=== PATIENT | male | born 1945 | race Caucasian/White ===

== ENCOUNTER → 2017-09-24 06:36 | Outpatient (CLI) | payer OTHER, SELFPAY ==
--- NOTE | 2017-09-24 | DI.MRI.S_ITS ---
PROCEDURE: MR LUMBAR SPINE WO CON INDICATIONS: LOW BACK PAIN TECHNIQUE: Noncontrast sagittal T1 spin echo and T2 fast echo, sagittal STIR, axial T1 and T2 fast spin echo through the lumbar spine. In cases with scoliosis, additional coronal T2 fast spin echo may be performed. COMPARISON: [facility], NM, BONE SCAN WHOLE BODY, 06/03/2009, 11:39. [facility], CT, ABDOMEN/PELVIS WITH CONTRAST, 05/16/2009, 14:08. [facility], CR, L-SPINE 2-3 VIEWS, 11/16/2010, 15:06. [facility], MR, L-SPINE WITHOUT CONTRAST, 12/07/2010, 10:40. FINDINGS: Image quality: Diagnostic, with note made of motion artifact. Alignment and Curvature: Mild retrolisthesis is seen at the T12-L1, and L1-L2, L2-L3, and L3-L4 levels. Minimal anterolisthesis is seen at L5-S1. Bone Marrow: Marrow is of normal overall signal. No acute vertebral body compression fractures. Spinal Cord: Conus medullaris terminates at the L1 level. Visualized cord demonstrates normal signal and size. Paraspinous Soft Tissues: No paravertebral masses. T12-L1: At least moderate loss of disc height is seen. Loss of disc signal is seen. Moderate to prominent disc bulge is seen, which is eccentric to the right. There is moderate bilateral neural foraminal narrowing seen, right worse than left. Moderate central canal narrowing is seen. These degenerative changes are progressed compared to 2011. L1-L2: Mild to moderate loss of disc height and disc signal are seen. Moderate generalized disc bulge is seen. Moderate facet joint hypertrophy is seen. Moderate bilateral neural foraminal narrowing is seen, left worse than right. Moderate to severe central canal narrowing is seen at this level. These degenerative changes are progressed compared to the prior MRI. L2-L3: Mild loss of disc height is seen. Loss of disc signal is seen. Moderate to prominent disc bulge is seen, which is eccentric to the right. Moderate to prominent facet hypertrophy is seen. Moderate to severe bilateral neural foraminal narrowing is seen, left worse than right. There is severe central canal narrowing seen, as on series 6 image 20. This is partially exacerbated by the presence of prominent epidural fat. These degenerative changes are mildly progressed compared to the prior MRI. L3-L4: Moderate to severe loss of disc height and disc signal are seen. Moderate disc bulge is seen at this level. Moderate facet joint hypertrophy is seen. Moderate bilateral neural foraminal narrowing is seen. Moderate central canal narrowing is seen. These degenerative changes are progressed compared to 2011. L4-L5: Moderate to severe loss of disc height and disc signal are seen. Moderate to prominent disc bulge is seen. Moderate to prominent facet hypertrophy is seen at this level. There is moderate to severe right-sided and moderate left-sided neural foraminal narrowing. Moderate central canal narrowing is seen. These degenerative changes are progressed compared to the prior MRI. L5-S1: The disc height is well-preserved. Loss of disc signal is seen at this level. Postoperative changes are seen at this level, with a disc spacer. Moderate generalized disc bulge is seen. Moderate to prominent facet hypertrophy is seen. There is moderate to severe right-sided and moderate left-sided neural foraminal narrowing seen. Moderate central canal narrowing is seen at this level, which is partially exacerbated by prominent epidural fat. These degenerative changes are worse than in 2011. IMPRESSION: Multiple levels of lumbar spine degenerative changes are seen, which have progressed compared to 2011. The degenerative changes overall are worst at the L2-L3 level. Dictated by: Reji Hernandez M.D. on 09/24/2017 at 10:07 Approved by: Reji Hernandez M.D. on 09/24/2017 at 10:40
== END ==
PROVIDERS: PCP Family Medicine; Visit Provider Physical Medicine & Rehabilitation
DX: M51.36 Other intervertebral disc degeneration, lumbar region (principal); M43.15 Spondylolisthesis, thoracolumbar region; M43.16 Spondylolisthesis, lumbar region; M43.17 Spondylolisthesis, lumbosacral region
CPT/HCPCS: 72148

== ENCOUNTER → 2018-04-04 12:48 | Outpatient (CLI) | payer OTHER, SELFPAY ==
--- NOTE | 2018-04-04 | DI.RAD.S_ITS ---
PROCEDURE: XR HIP W PEL IF DONE LT MIN 4V INDICATIONS: SPINAL STENOSIS,LUMBAR REGION,SACROLILIITIS TECHNIQUE: AP pelvis with lateral view(s) of the left and right hip(s). COMPARISON: None. FINDINGS: Bones: No fractures or dislocations. Pelvic ring appears intact. No suspicious bony lesions. Mild joint narrowing with periarticular osteophyte formation of the left and right hip joint. Degenerative disc and facet disease involves the inferior lumbar spine. Soft tissues: The visualized bowel gas pattern is normal. No suspicious soft tissue calcifications. IMPRESSION: Mild symmetric hip joint degeneration. Dictated by: Saul Dias [facility] Interpreted: Irvin Javed MD on 04/04/2018 at 14:03 Approved by: Irvin Javed M.D. on 04/04/2018 at 14:25
== END ==
PROVIDERS: PCP Family Medicine; Visit Provider Neurological Surgery
DX: M48.062 Spinal stenosis, lumbar region with neurogenic claudication (principal); M46.1 Sacroiliitis, not elsewhere classified; M16.0 Bilateral primary osteoarthritis of hip
CPT/HCPCS: 73522

== ENCOUNTER → 2018-06-23 09:18 | Outpatient (CLI) | payer OTHER, SELFPAY ==
[2018-06-23 10:04] LABS: Add Manual Diff / Slide Review NO; Basophils Absolute Auto 100 /uL (0-100); Basophils Percent Auto 2.5 % (0-2); Eosinophils Absolute Auto 300 /uL (0-450); Eosinophils Percent Auto 10.5 % (2-4); Hematocrit 43.5 % (41-53); Hemoglobin 14.9 g/dL (13.5-17.5); Lymphocytes Absolute Auto 800 /uL (1100-4500); Mean Corpuscular HGB Conc 34.1 % (30-36); Mean Corpuscular Volume 87.9 fL (80-100); Monocytes Absolute Auto 300 /uL (0-900); Monocytes Percent Auto 11.6 % (3-14); Neutrophils Absolute Auto 1400 /uL (1500-7000); Neutrophils Percent Auto 47.4 % (50-75); Platelet Count 175 X10^3/uL (150-400); Red Blood Cell Count 4.95 X10^6/uL (4.5-5.9); Red Cell Distribution Width 13.4 % (11.6-14.8); White Blood Cell Count 2.9 X10^3/uL (4.5-11.0)
[2018-06-23 10:32] LABS: Alanine Aminotransferase 44 IU/L (21-72); Albumin 4.4 g/dL (3.5-5.0); Albumin Globulin Ratio 1.6 (1.0-2.8); Alkaline Phosphatase 72 U/L (38-126); Aspartate Aminotransferase 20 IU/L (17-59); BUN Creatinine Ratio 17.3 (6-22); Bilirubin Total 0.6 mg/dL (0.2-1.3); Blood Urea Nitrogen 19 mg/dL (9-20); Calcium 9.3 mg/dL (8.4-10.2); Carbon Dioxide 27 mmol/L (22-32); Chloride 104 mmol/L (98-107); Cholesterol 229 mg/dL (140-199); Estimated Glomerular Filt Rate > 60.0 mL/min (>60); Globulin 2.8 g/dL (1.7-4.1); Glucose 102 mg/dL (80-110); HDL Cholesterol 50 mg/dL (40-60); HEMOLYSIS < 15 (0-50); LDL Cholesterol Calculated 159 mg/dL (<100); Potassium 4.3 mmol/L (3.4-5.1); Sodium 139 mmol/L (137-145); Total Protein 7.2 g/dL (6.3-8.2); Triglycerides 98 mg/dL (35-150)
[2018-06-23 11:02] LABS: TSH w/ Reflex to FT4 2.85 uIU/mL (0.47-4.68)
== END ==
PROVIDERS: PCP Family Medicine; Visit Provider Family Medicine
DX: E78.2 Mixed hyperlipidemia (principal); Z13.6 Encounter for screening for cardiovascular disorders
CPT/HCPCS: 36415; 80053; 80061; 84443; 85025

== ENCOUNTER → 2018-08-12 10:36 | Outpatient (CLI) | payer OTHER, SELFPAY ==
[2018-08-12 12:24] LABS: Add Manual Diff / Slide Review NO; Basophils Absolute Auto 0 /uL (0-100); Basophils Percent Auto 0.9 % (0-2); Eosinophils Absolute Auto 200 /uL (0-450); Eosinophils Percent Auto 5.1 % (2-4); Hematocrit 45.9 % (41-53); Hemoglobin 14.8 g/dL (13.5-17.5); Lymphocytes Absolute Auto 1100 /uL (1100-4500); Lymphocytes Percent Auto 31.6 % (25-40); Mean Corpuscular HGB Conc 32.4 % (30-36); Mean Corpuscular Volume 92.7 fL (80-100); Monocytes Absolute Auto 300 /uL (0-900); Monocytes Percent Auto 6.9 % (3-14); Neutrophils Absolute Auto 2000 /uL (1500-7000); Neutrophils Percent Auto 55.5 % (50-75); Platelet Count 186 X10^3/uL (150-400); Red Blood Cell Count 4.95 X10^6/uL (4.5-5.9); White Blood Cell Count 3.6 X10^3/uL (4.5-11.0)
[2018-08-12 12:33] LABS: Alanine Aminotransferase 33 IU/L (21-72); Albumin 4.5 g/dL (3.5-5.0); Albumin Globulin Ratio 1.7 (1.0-2.8); Alkaline Phosphatase 64 U/L (38-126); Aspartate Aminotransferase 16 IU/L (17-59); BUN Creatinine Ratio 18.2 (6-22); Bilirubin Total 0.6 mg/dL (0.2-1.3); Blood Urea Nitrogen 20 mg/dL (9-20); Calcium 9.3 mg/dL (8.4-10.2); Carbon Dioxide 27 mmol/L (22-32); Chloride 102 mmol/L (98-107); Estimated Glomerular Filt Rate > 60.0 mL/min (>60); Globulin 2.7 g/dL (1.7-4.1); Glucose 79 mg/dL (80-110); HEMOLYSIS < 15 (0-50); Potassium 4.1 mmol/L (3.4-5.1); Sodium 139 mmol/L (137-145); Total Protein 7.2 g/dL (6.3-8.2)
== END ==
PROVIDERS: PCP Family Medicine; Referring Provider Specialist; Visit Provider Family Medicine
DX: K62.5 Hemorrhage of anus and rectum (principal)
CPT/HCPCS: 36415; 80053; 85025

== ENCOUNTER 2018-09-16 06:49 | Day surgery (SDC) | payer OTHER, SELFPAY ==
[2018-09-16] VITALS (7 sets, daily range): BP systolic 124–141; BP diastolic 65–88; PULSE 63–76; RESP 14–17; TEMP 36.2–36.6; O2SAT 98–100; BMI 31.4
[2018-09-16] MEDS: SODIUM CHLORIDE 0.9% 1,000 ML 100 ML IV (07:34)
--- NOTE | 2018-09-16 07:44 | PM.HP.1 ---
History of Present Illness Date Patient Seen: 09/16/18 Time Patient Seen: 07:44 Chief complaint: [id number] Colonoscopy Narrative: Patient here for screening colonoscopy. Patient History Medical History ADHD (attention deficit hyperactivity disorder) (Chronic) Chronic back pain (Chronic ~1959) Ankle pain (Resolved ~2005) Chicken pox (Resolved ~1950) Fractures (Resolved ~2005) Measles (Resolved ~1949) Mumps (Resolved ~1949) Prostate cancer (Resolved ~2006) Skin cancer (Resolved ~1999) Surgical History Anesthesia (Resolved) Inguinal hernia (Resolved 02/2015) Status post reconstruction procedure (Resolved) Tear of tendon of left lower extremity (Resolved) Family History Sister Age: 66 Cancer Father Prostate cancer Mother Cancer Sister No problems noted. Family/Other Premature Chronic lung disorder due to premature Social History marital status: Smoking Status: Never smoker alcohol intake: current substance use type: does not use Family & Social History Family History Sister Age: 66 Cancer Father Prostate cancer Mother Cancer Sister No problems noted. Family/Other Premature Chronic lung disorder due to premature Tobacco & Substance use: Smoking Status Never smoker alcohol intake current Meds Home Medications Medication Instructions Recorded Confirmed Type multivitamin [Multiple Vitamins] 1 tab PO QPM #0 12/31/11 08/15/18 History amitriptyline 50 mg tablet 50 mg PO Q DAY #90 tab 03/07/18 08/15/18 Rx diclofenac sodium 75 mg PO BID #180 ect 06/16/18 08/15/18 Rx acetaminophen 500 mg tablet 1,000 mg PO Q6H PRN 07/10/18 08/15/18 History aspirin 81 mg tablet,delayed 81 mg PO DAILY 07/10/18 08/15/18 History release atorvastatin 10 mg tablet 10 mg PO HS #90 tab 07/10/18 08/15/18 Rx Allergies Allergy/AdvReac Type Severity Reaction Status Date / Time No Known Allergies Allergy Uncoded 04/05/19 13:03 Review of Systems Review of Systems All systems reviewed & are unremarkable except as noted in HPI and below Gastrointestinal Comments: No further bleeding Exam Vital Signs (past 8 hours): - 09/16/18 07:19 Temperature 97.1 F L Pulse Rate 76 Respiratory Rate 16 Blood Pressure 141/87 H Pulse Oximetry 100 Oxygen Delivery Method Room Air Narrative Exam Narrative: Obese no apparent distress. Lungs clear heart regular rate and rhythm without murmur gallop abdomen is protuberant soft. Patient is alert and oriented Assessment & Plan Assessment & Plan narrative: The patient for a screening colonoscopy. I have discussed the procedure with them. Risks of bleeding, perforation which would necessitate major operation, failure to find remove all lesions, the potential tattoo were all discussed. All questions were answered. They wished to proceed.
--- NOTE | 2018-09-16 07:46 | PM.PREOP ---
Pre-operative Note Interval Note History & Physical reviewed/Exam performed by Physician: Yes Changes to H&P: No ASA Class (for procedural sedation): II
[2018-09-16] MEDS: MIDAZOLAM 5 MG/5 ML VIAL IV (07:57)
[2018-09-16] MEDS: fentaNYL 250 MCG/5 ML INJ IV (07:58)
--- NOTE | 2018-09-16 09:06 | PM.OP.ENDO ---
Operative Date/Time/Diagnoses Date of procedure: 09/16/18 Time of procedure: 09:06 Pre-op diagnosis: Screening exam. Last exam 5 years ago. Post-op diagnosis: same (Diverticulosis pancolonic. Internal hemorrhoids without ulceration.) Procedure & Clinicians Same procedure as scheduled: Yes Indications: screening Surgeon: Hal Kee Procedure Notes SCOAP/Timeout: Performed Procedure in detail: The patient was placed in the left lateral decubitus position and underwent IV sedation directed by the surgeon consisting of fentanyl and Versed. Digital exam was unremarkable except his prostate is absent. The scope was inserted and advanced through the rectum into the sigmoid, descending, transverse, and ascending colon. Patient had extensive sigmoid diverticulosis but also scattered diverticulosis elsewhere. The cecum was reached identified by the ileocecal valve and the appendiceal opening. The scope was gradually brought out. No Polyps were found. The scope ultimately was retroflexed in the rectum. The appearance was remarkable for internal hemorrhoids without ulceration. The scope was removed and the patient tolerated the procedure well. prep was very good Scope withdrawal time: Over 20 minutes Sedation minutes: 54 Findings: diverticulosis (Boat[place] colonic) and internal hemorrhoids Specimen(s): none sent Complications: none Recommendations: Colonscopy in 5 years Follow up: as needed Disposition: PACU
--- NOTE | 2018-09-16 09:49 | SUR.PHASEI ---
Discharge note: VSS, at bedside. Discharge instructions reviewed with good understanding. No complaints of pain. Tolerating po without nausea. IV d\c'd intact. Discharged to home via wheelchair to car with . Aleyda Sheridan RN
== END 2018-09-16 09:38 ==
LOC: ENDO 06:52
PROVIDERS: PCP Family Medicine; Visit Provider Specialist
PROC: 0DJD8ZZ Inspection of Lower Intestinal Tract, Via Natural or Artificial Opening Endoscopic (ICD-10-PCS; CPT 45378; principal; 2018-09-16 07:45)
DX: Z12.11 Encounter for screening for malignant neoplasm of colon (principal); K57.30 Diverticulosis of large intestine without perforation or abscess without bleeding; K64.8 Other hemorrhoids
CPT/HCPCS: G0121; 99152; 99153; J2250; J3010

== ENCOUNTER → 2020-02-11 08:38 | Outpatient (CLI) | payer MEDICARE, SELFPAY ==
[2020-02-11 09:48] LABS: Add Manual Diff / Slide Review NO; Basophils Absolute Auto 0 /uL (0-100); Eosinophils Absolute Auto 200 /uL (0-450); Eosinophils Percent Auto 5.7 % (2-4); Hematocrit 45.4 % (41-53); Lymphocytes Absolute Auto 1100 /uL (1100-4500); Lymphocytes Percent Auto 31.7 % (25-40); Mean Corpuscular HGB Conc 33.1 % (30-36); Mean Corpuscular Hemoglobin 29.7 PG (26-34); Mean Corpuscular Volume 89.9 fL (80-100); Monocytes Absolute Auto 300 /uL (0-900); Monocytes Percent Auto 8.6 % (3-14); Neutrophils Absolute Auto 1900 /uL (1500-7000); Platelet Count 174 X10^3/uL (150-400); Red Blood Cell Count 5.05 X10^6/uL (4.5-5.9); Red Cell Distribution Width 13.9 % (11.6-14.8); White Blood Cell Count 3.6 X10^3/uL (4.5-11.0)
[2020-02-11 10:11] LABS: Alanine Aminotransferase 42 IU/L (<50); Albumin 4.1 g/dL (3.5-5.0); Albumin Globulin Ratio 1.6 (1.0-2.8); Alkaline Phosphatase 72 U/L (38-126); Aspartate Aminotransferase 24 IU/L (17-59); BUN Creatinine Ratio 21.8 (6-22); Bilirubin Total 0.6 mg/dL (0.2-1.3); Blood Urea Nitrogen 24 mg/dL (9-20); Calcium 9.4 mg/dL (8.4-10.2); Carbon Dioxide 28 mmol/L (22-32); Chloride 106 mmol/L (98-107); Cholesterol 141 mg/dL (140-199); Estimated Glomerular Filt Rate > 60.0 mL/min (>60); Globulin 2.6 g/dL (1.7-4.1); Glucose 105 mg/dL (80-110); HDL Cholesterol 57 mg/dL (40-60); HEMOLYSIS < 15 (0-50); LDL Cholesterol Calculated 73 mg/dL (<100); Sodium 139 mmol/L (137-145); Total Protein 6.7 g/dL (6.3-8.2); Triglycerides 57 mg/dL (35-150)
[2020-02-11 10:37] LABS: TSH w/ Reflex to FT4 2.64 uIU/mL (0.47-4.68)
== END ==
PROVIDERS: PCP Family Medicine; Referring Provider Family Medicine; Visit Provider Family Medicine
DX: Z00.00 Encounter for general adult medical examination without abnormal findings (principal); E78.2 Mixed hyperlipidemia; Z13.6 Encounter for screening for cardiovascular disorders
CPT/HCPCS: 36415; 80053; 80061; 84443; 85025

== ENCOUNTER → 2020-06-07 14:25 | Outpatient (CLI) | payer MEDICARE, SELFPAY ==
[2020-06-07] MEDS: COVID-19 VACC #1, MRNA(MOD) 100 MCG/0.5 ML VIAL IM (14:33)
== END ==
PROVIDERS: PCP Family Medicine; Visit Provider Internal Medicine
DX: Z23 Encounter for immunization (principal)
CPT/HCPCS: 0011A; 91301

== ENCOUNTER → 2020-07-05 14:33 | Outpatient (CLI) | payer MEDICARE, SELFPAY ==
[2020-07-05] MEDS: COVID-19 VACC #2, MRNA(MOD) 100 MCG/0.5 ML VIAL IM (14:35)
== END ==
PROVIDERS: PCP Family Medicine; Visit Provider Internal Medicine
DX: Z23 Encounter for immunization (principal)
CPT/HCPCS: 0012A; 91301

== ENCOUNTER 2020-08-30 08:39 | Emergency (ER) | payer OTHER, SELFPAY ==
[2020-08-30 08:45] VITALS: BP 145/70; PULSE 75; RESP 16; TEMP 37.1; O2SAT 98; BMI 34.3
[2020-08-30 09:01] VITALS: BP 127/65; PULSE 69; RESP 23; O2SAT 97
--- NOTE | 2020-08-30 09:05 | ED_ITS ---
HPI - General Adult General Chief complaint: Extremity Injury, Upper Stated complaint: PAIN IN LEFT SHOULDER AND ARM Time Seen by Provider: 08/30/20 08:42 History of Present Illness HPI narrative: 5-year-old gentleman with a history of hyperlipidemia and arthritis presents with 48 hours of left trapezius muscle and posterior shoulder pain. He describes no inciting trauma or increased activity that may have caused this. Started on Saturday afternoon while he was sitting and has continu ed. Describes it as a 1/10 unless he is moving or manipulating his arm or trying to sleep in which case it increases. He has been having difficulty finding a comfortable position when sleeping the last 2 nights. He describes no chest pain, palpitations, diaphoresis, nausea, vomiting, abdominal pain, lower extremity edema. He does note that over the past 6 months or so he has noticed that he has a bit more short of breath when he goes up a flight of stairs however his typical 1-2 mi walks in the morning have been absolutely normal with no associated cardiac symptoms. Related Data Home Medications Medication Instructions Recorded Confirmed multivitamin [Multiple Vitamins] 1 tab PO QPM #0 12/31/11 03/01/20 fexofenadine 180 mg tablet 180 mg PO DAILY 03/01/20 03/01/20 Previous Rx's Medication Instructions Recorded sildenafil (pulm.hypertension) 20 60 mg PO DAILY #60 tab 03/01/20 mg tablet amitriptyline 50 mg tablet See Rx Instructions .ROUTE 05/30/20 .COMPLEX #90 tablet atorvastatin 10 mg tablet 10 mg PO HS #90 tab 05/30/20 diclofenac sodium 75 mg See Rx Instructions .ROUTE 05/30/20 tablet,delayed release .COMPLEX #180 tablet dexamethasone [Decadron] 10 mg PO DAILY #8 tab 08/30/20 Allergies Allergy/AdvReac Type Severity Reaction Status Date / Time No Known Allergies Allergy Uncoded 03/01/20 11:24 Review of Systems Review of Systems Narrative: Remainder of complete review of systems is otherwise unremarkable except for that included in the HPI. Patient History Medical History ADHD (attention deficit hyperactivity disorder) Ankle pain (~2005) Chicken pox (~1949) Chronic back pain (~1959) Fractures (~2005) Measles (~1949) Mumps (~1949) Prostate cancer (~2006) Skin cancer (~1999) Surgical History Anesthesia Inguinal hernia (02/2015) Status post reconstruction procedure Tear of tendon of left lower extremity Family History Sister Age: 68 Cancer Father Prostate cancer Mother Cancer Sister No problems noted. Family/Other Premature Chronic lung disorder due to premature Social History marital status: Smoking Status: Never smoker alcohol intake: current substance use type: does not use Smoking Status: Never smoker Exam Narrative Exam Narrative: General: Healthy appearing, in no acute distress. Able to give a complete and coherent history. Well-nourished well-developed HEENT: Moist mucous membranes, normal sclera with reactive pupils, Neck: No JVD, supple. No tenderness with manipulation including under axial load. Respiratory: Lungs are clear to auscultation, no wheezing no rales no rhonchi. Full and symmetrical air movement Cardiac: Regular rate and rhythm no murmurs no bruits Abdomen: Soft, nontender, good bowel tones, no flank pain Skin: Warm and dry, no rashes Neurologic: Grossly neurologically intact with no obvious asymmetries or abnormalities. His tenderness is in C 4-5 distribution on the left side not associated with any skin changes to suggest zoster. Neurovascularly intact distal. Extremities: No trauma, well perfused Psych: Cooperative, appropriate insight and affect Initial Vital Signs Initial Vital Signs: Vital Signs Temperature 98.7 F 08/30/20 08:45 Pulse Rate 75 08/30/20 08:45 Respiratory Rate 16 08/30/20 08:45 Blood Pressure 145/70 H 08/30/20 08:45 Pulse Oximetry 98 08/30/20 08:45 Course Vital Signs Vital signs: Vital Signs - 8 hr 08/30/20 08:45 Temperature 98.7 F Pulse Rate 75 Respiratory Rate 16 Blood Pressure 145/70 H Pulse Oximetry 98 Medical Decision Making Medical Records Medical records reviewed: Yes I reviewed the patient's medical records. MDM Narrative Medical decision making narrative: 75-year-old gentleman with 48 hours of consistent left shoulder/upper extremity pain consistent with cervical radiculopathy. History and exam do not suggest any coronary issues, pneumonia, tumors, shingles or alternative diagnoses. Will have him try 3 days of Decadron continue his current diclofenac and he would like to see his chiropractor to see if that might help his pain as well. He is safe for home discharge Discharge Plan Departure Patient Disposition: Home Clinical Impression: Radicular pain in left arm Instructions: DI for Cervical Radiculopathy Activity Restrictions/Additional Instructions: Thank you for coming in today The 2 days of symptoms that you have had with the pain in the back of your neck and shoulder is very likely pain from the nerve root coming out at the C4-5 level of your neck. It is not uncommon to have a bit of inflammation that will irritate the nerve to cause this pain. The fact that it is worse with positioning also suggests this. Using both the diclofenac as well as amitriptyline can help with nerve pain. I am also going to give you a 3 day course of Decadron, a steroid to help reduce the inflammation. This prescription was electronically transmitted to [facility]. You asked about seeing your chiropractor regarding this pain, and that would be completely appropriate. I hope you feel better Prescriptions: New dexamethasone [Decadron] 4 mg tablet 10 mg PO DAILY Qty: 8 RF: 0 No Action fexofenadine [Zakiya Allergy] 180 mg tablet 180 mg PO DAILY RF: 0 sildenafil (pulm.hypertension) 20 mg tablet 60 mg PO DAILY Qty: 60 RF: 3 multivitamin [Multiple Vitamins] 1 EACH tablet 1 tab PO QPM Qty: 0 RF: 0 amitriptyline 50 mg tablet See Rx Instructions .ROUTE .COMPLEX Qty: 90 RF: 3 atorvastatin [Lipitor] 10 mg tablet 10 mg PO HS Qty: 90 RF: 3 diclofenac sodium 75 mg tablet,delayed release (DR/EC) See Rx Instructions .ROUTE .COMPLEX Qty: 180 RF: 1 Referrals: Ubaldo Dodson MD [Primary Care Provider] -
== END 2020-08-30 09:09 | disposition home or self-care (01) ==
PROVIDERS: Emergency Provider Emergency Medicine; PCP Family Medicine
DX: M79.2 Neuralgia and neuritis, unspecified (principal)
CPT/HCPCS: 99281

== ENCOUNTER 2020-09-04 11:10 | Emergency (ER) | payer OTHER, SELFPAY ==
[2020-09-04] VITALS (7 sets, daily range): BP systolic 132–154; BP diastolic 79–81; PULSE 66–77; RESP 15–19; TEMP 36.8; O2SAT 96–100; BMI 34.3
--- NOTE | 2020-09-04 11:26 | ED_ITS ---
HPI - General Adult General Chief complaint: Neuro Symptoms/Deficit Stated complaint: heart thing going on, numbness down L arm, dizzy Time Seen by Provider: 09/04/20 11:25 Source: patient Mode of arrival: Ambulatory Limitations: no limitations History of Present Illness HPI narrative: Patient is a 75-year-old male who is seen in our emergency department a couple days ago for left-sided neck/arm discomfort. Was sent home with a short course of steroids which she is completed. He stated that over the past 24 hours he now has vertigo. He has had vertigo in the past. He does have medication at home for this. Currently he feels better than the onset of the symptoms but this is certainly last longer than what it normally has. He states the pain in his left arm that he was seen for a couple days ago has improved but now he is having some tingling. No headaches. He did have a very fleeting change in vision of his left eye earlier today but that is completely resolved. Has not tried anything for symptoms other than his home vertigo medication. Related Data Home Medications Medication Instructions Recorded Confirmed multivitamin [Multiple Vitamins] 1 tab PO QPM #0 12/31/11 03/01/20 fexofenadine 180 mg tablet 180 mg PO DAILY 03/01/20 03/01/20 Previous Rx's Medication Instructions Recorded sildenafil (pulm.hypertension) 20 60 mg PO DAILY #60 tab 03/01/20 mg tablet amitriptyline 50 mg tablet See Rx Instructions .ROUTE 05/30/20 .COMPLEX #90 tablet atorvastatin 10 mg tablet 10 mg PO HS #90 tab 05/30/20 diclofenac sodium 75 mg See Rx Instructions .ROUTE 05/30/20 tablet,delayed release .COMPLEX #180 tablet dexamethasone [Decadron] 10 mg PO DAILY #8 tab 08/30/20 Allergies Allergy/AdvReac Type Severity Reaction Status Date / Time No Known Allergies Allergy Uncoded 03/01/20 11:24 Review of Systems Constitutional Constitutional: Denies chills, Denies fatigue, Denies fever(s), Denies frequent falls, Denies headache(s) and Reports weakness Eyes Eyes: Reports change in vision (Left eye that has resolved) and Denies eye pain ENT Ears, Nose, Mouth, and Throat: Reports vertigo, Denies dizziness, Denies headache(s) and Denies sore throat Cardiovascular Cardiovascular: Denies chest pain, Denies syncope, Denies rapid heart rate, Denies lightheadedness and Denies dyspnea Respiratory Respiratory: Denies cough and Denies dyspnea Gastrointestinal Gastrointestinal: Denies abdominal pain, Denies nausea and Denies vomiting Genitourinary Genitourinary: Denies dysuria Genitourinary: Denies dysuria Musculoskeletal Musculoskeletal: Denies arthralgias, Denies myalgias and Reports numbness Integumentary/Breasts Skin/Breast: Denies lesions and Denies rash Neurologic Neurologic: Denies abnormal movements, Denies abnormal speech, Denies behavioral changes, Denies confusion, Reports vertigo, Denies dizziness, Denies syncope, Denies frequent falls, Denies headache(s), Reports numbness and Reports weakness Psychiatric Psychiatric: Denies behavioral changes and Denies confusion Endocrine Endocrine: Denies fatigue and Denies flushing Hematologic/Lymphatic On Anticoagulants: No Allergic/Immunologic Allergic/Immunologic: Denies urticaria Patient History Medical History ADHD (attention deficit hyperactivity disorder) Ankle pain (~2005) Chicken pox (~1950) Chronic back pain (~1959) Fractures (~2005) Measles (~1949) Mumps (~1949) Prostate cancer (~2006) Skin cancer (~1999) Surgical History Anesthesia Inguinal hernia (02/2015) Status post reconstruction procedure Tear of tendon of left lower extremity Family History Sister Age: 68 Cancer Father Prostate cancer Mother Cancer Sister No problems noted. Family/Other Premature Chronic lung disorder due to premature Social History marital status: Smoking Status: Never smoker alcohol intake: current substance use type: does not use Smoking Status: Never smoker Exam Initial Vital Signs Initial Vital Signs: Vital Signs Pulse Rate 69 09/04/20 11:26 Pulse Oximetry 100 09/04/20 11:26 Const General: cooperative, comfortable, well developed, well groomed and No acute distress Limitations: mental status not altered HENHI Head: normal to inspection and normocephalic Eyes General: appearance normal, both eyes and all related structures Eyelids: eyelids normal Sclera: sclerae normal Pupils: PERRL Neck Lymphatic: No lymphadenopathy Chest Chest: No crepitus and No tenderness Resp Effort & Inspection: normal respiratory effort Auscultation: clear to auscultation bilaterally Cardio Rate: regular rate Rhythm: regular rhythm GI Inspection: non-distended Palpation: soft, No firm and No tender Back/Spine/Pelvis Cervical Spine: No cervical muscular tenderness and No cervical spinal tenderness Thoracic/Lumbar Spine: No thoracic spinal tenderness and No lumbar spinal tenderness Skin Lesions: no lesions Rashes: no rashes Neuro General: patient alert, patient awake and patient oriented x3 Cranial Nerves: CN's II-XI intact bilaterally Cognition: normal cognition Speech: speech normal Gait: normal gait Sensory Exam: no sensory deficits noted Other: Patient with 5/5 strength bilateral lower extremities. 5/5 strength right upper extremity. Patient with a 4/5 strength left deltoid however 5/5 strength rest of his left upper extremity muscles. Extrem General: normal to inspection and capillary refill normal Psych Appearance: grossly normal and well kempt Scores GCS Orr coma scale eye opening: Spontaneous Orr coma scale verbal response: Orientated Orr coma scale motor response: Obey commands Cam coma scale total score: 15 NIH Stroke Scale Level of Conciousness: Alert, keenly responsive Ask month/age: Answers both questions correctly. Open/close eyes, close hand: Performs both tasks correctly Best gaze horizontal: Normal Visual montemayor: No visual loss Facial palsy: Normal symetrical movement Left arm drift: No drift for full 10 sec Right arm drift: No drift for full 10 sec Left leg drift: No drift for full 5 sec Right leg drift: No drift for full 5 sec Limb ataxia: Absent Sensory on face/arms/legs: Normal, no sensory loss Best language: No aphasia, normal Dysarthria: Normal Extinction or inattention: No abnormality Total NIH Stroke scale score: 0 Course Orders Ordered: ED Orders 09/04/20 11:16 EKG-12 Lead Routine 09/04/20 11:35 CT head/brain wo con Stat 09/04/20 11:42 Complete Blood Count AUTO DIFF Stat Comprehensive Metabolic Panel Stat Lipase Stat Partial Thromboplastin Time Stat Prothrombin Time INR Stat Troponin & CK Cardiac Panel Stat Vital Signs Vital signs: Vital Signs - 8 hr 09/04/20 11:26 09/04/20 11:28 09/04/20 11:30 Temperature 98.3 F Pulse Rate 69 72 72 Respiratory Rate 17 Blood Pressure 154/81 H Pulse Oximetry 100 98 99 09/04/20 12:00 09/04/20 12:30 09/04/20 13:00 Temperature Pulse Rate 66 69 77 Respiratory Rate 15 16 19 Blood Pressure Pulse Oximetry 97 96 97 09/04/20 13:01 Temperature Pulse Rate 66 Respiratory Rate 16 Blood Pressure 132/79 Pulse Oximetry 97 Medical Decision Making Medical Records Medical records reviewed: Yes I reviewed the patient's medical records. Lab Data Lab results reviewed: Yes I reviewed the patient's lab results. Result diagrams: 09/04/20 11:42 09/04/20 11:42 Labs: Lab Results 09/04/20 09/04/20 09/04/20 Range/Units 11:42 11:42 11:42 WBC 4.7 (4.5-11.0) X10^3/uL RBC 5.10 (4.5-5.9) X10^6/uL Hgb 15.2 (13.5-17.5) g/dL Hct 46.0 (41-53) % MCV 90.2 (80-100) fL MCH 29.8 (26-34) PG MCHC 33.1 (30-36) % RDW 14.3 (11.6-14.8) % Plt Count 176 (150-400) X10^3/uL Neut % (Auto) 53.0 (50-75) % Lymph % (Auto) 31.1 (25-40) % [place] % (Auto) 8.0 (3-14) % Eos % (Auto) 7.2 H (2-4) % Baso % (Auto) 0.7 (0-2) % Neut # (Auto) 2500 (9209-9705) /uL Lymph # (Auto) 1500 (4617-0264) /uL [place] # (Auto) 400 (0-900) /uL Eos # (Auto) 300 (0-450) /uL Baso # (Auto) 0 (0-100) /uL PT 10.6 (10.1-12.7) SECONDS INR 0.9 (0.9-1.3) APTT 30 (26.4-36.2) SECONDS Sodium 136 L (137-145) mmol/L Potassium 4.1 (3.4-5.1) mmol/L Chloride 104 (98-107) mmol/L Carbon Dioxide 27 (22-32) mmol/L BUN 23 H (9-20) mg/dL Creatinine 0.99 (0.66-1.25) mg/dL Estimated GFR > 60.0 (>60) mL/min BUN/Creatinine Ratio 23.2 H (6-22) Glucose 95 (80-110) mg/dL Calcium 9.2 (8.4-10.2) mg/dL Total Bilirubin 0.5 (0.2-1.3) mg/dL AST 20 (17-59) IU/L ALT 37 (<50) IU/L Alkaline Phosphatase 62 (38-126) U/L Total Creatine Kinase (55-170) U/L CK-MB (CK-2) CK-MB (CK-2) Rel Index Troponin I (0.01-0.034) ng/mL Total Protein 6.4 (6.3-8.2) g/dL Albumin 3.9 (3.5-5.0) g/dL Globulin 2.5 (1.7-4.1) g/dL Albumin/Globulin Ratio 1.6 (1.0-2.8) Lipase 56 (23-300) U/L 09/04/ Range/Units 11:42 WBC (4.5-11.0) X10^3/uL RBC (4.5-5.9) X10^6/uL Hgb (13.5-17.5) g/dL Hct (41-53) % MCV (80-100) fL MCH (26-34) PG MCHC (30-36) % RDW (11.6-14.8) % Plt Count (150-400) X10^3/uL Neut % (Auto) (50-75) % Lymph % (Auto) (25-40) % [place] % (Auto) (3-14) % Eos % (Auto) (2-4) % Baso % (Auto) (0-2) % Neut # (Auto) (7894-4787) /uL Lymph # (Auto) (7125-1504) /uL [place] # (Auto) (0-900) /uL Eos # (Auto) (0-450) /uL Baso # (Auto) (0-100) /uL PT (10.1-12.7) SECONDS INR (0.9-1.3) APTT (26.4-36.2) SECONDS Sodium (137-145) mmol/L Potassium (3.4-5.1) mmol/L Chloride (98-107) mmol/L Carbon Dioxide (22-32) mmol/L BUN (9-20) mg/dL Creatinine (0.66-1.25) mg/dL Estimated GFR (>60) mL/min BUN/Creatinine Ratio (6-22) Glucose (80-110) mg/dL Calcium (8.4-10.2) mg/dL Total Bilirubin (0.2-1.3) mg/dL AST (17-59) IU/L ALT (<50) IU/L Alkaline Phosphatase (38-126) U/L Total Creatine Kinase 78 (55-170) U/L CK-MB (CK-2) TNP CK-MB (CK-2) Rel Index TNP Troponin I < 0.012 (0.01-0.034) ng/mL Total Protein (6.3-8.2) g/dL Albumin (3.5-5.0) g/dL Globulin (1.7-4.1) g/dL Albumin/Globulin Ratio (1.0-2.8) Lipase (23-300) U/L Imaging Data CT scan - head: Radiologist's Impression: Joseluis Bonilla Ricarda 75 M [address] Scan ReportSigned Patient: Joseluis Bonilla BMR#: [id number]: 1945cct:[id number]/Sex: 75 / MDate of Service: 09/04/20Loc: EDAccession Number: [id number] Procedure: CT head/brain wo con Ordering Provider: Efrem Anders D.O. PROCEDURE: CT HEAD/BRAIN WO CON INDICATIONS: Vertigo and left arm weakness TECHNIQUE: Noncontrast 4.5 mm thick angled axial sections acquired from the foramen magnum to the vertex, with coronal and sagittal reformats. For radiation dose reduction, the following was used: automated exposure control, adjustment of mA and/or kV according to patient size. COMPARISON: [facility], CT, HEAD WITHOUT CONTRAST, 05/07/2017, 12:15. FINDINGS: Image quality: Excellent. CSF spaces: Basal cisterns are patent. No extra-axial fluid collections. The ventricles are symmetric in size and shape. Brain: No intracranial bleeds or masses. There is cerebral volume loss for age, with resultant ventricular and sulcal prominence. There are periventricular and deep white matter chronic small vessel ischemic changes. There is intracranial internal carotid artery atherosclerosis. Skull and face: Calvarium and visualized facial bones appear intact, without suspicious lesions. Sinuses: Visualized sinuses and mastoids are clear. IMPRESSION: Unremarkable intracranial study for age. Stable from prior. If there is strong clinical suspicion for an acute stroke, please consider an MRI for further evaluation, as it is more sensitive (assuming that there is no contraindication to MRI). Dictated by: Reji Hernandez M.D. on 09/04/2020 at 11:00 Approved by: Reji Hernandez M.D. on 09/04/2020 at 11:01 ECG Data Attestation: I personally reviewed and interpreted this ECG as follows: Prior ECG tracings: not available for review Interpretation: Sinus rhythm Ventricular rate of 71 LVH Normal QRS Normal QTC Nonspecific ST T wave changes MDM Narrative Medical decision making narrative: Patient has a history of vertigo and has vertigo now. Has a normal neurologic exam except for 4/5 strength with his left L2 when compared to the right. The discussion with him as to whether not his symptoms are related or whether not he has 2 separate symptoms that are going on. Is a very focal neurologic deficit with regard to his left L toilet in the rest of his neurologic exam is unremarkable. I do feel that the symptoms are not related. Vertigo would be a posterior stroke which would not also cause iso lated left deltoid weakness. He was also seen a couple days ago for neck strain that very well could be causing his left arm symptoms today. His head CT was unremarkable. His EKG was unremarkable. I discussed with him his symptoms and concerns for 2 separate issues verses stroke. I feel we can hold on further workup for now. He is going to contact his primary doctor for follow-up. He was given strict return precautions. He expressed understanding and agreement. Discharge Plan Departure Patient Disposition: Home Clinical Impression: Vertigo, Radiculopathy Instructions: DI for Vertigo Activity Restrictions/Additional Instructions: I recommend that you continue to take all of your medications as directed. Contact your primary provider for follow-up. Return to the emergency department for any new or worsening symptoms Prescriptions: No Action fexofenadine [Zakiya Allergy] 180 mg tablet 180 mg PO DAILY RF: 0 sildenafil (pulm.hypertension) 20 mg tablet 60 mg PO DAILY Qty: 60 RF: 3 multivitamin [Multiple Vitamins] 1 EACH tablet 1 tab PO QPM Qty: 0 RF: 0 amitriptyline 50 mg tablet See Rx Instructions .ROUTE .COMPLEX Qty: 90 RF: 3 atorvastatin [Lipitor] 10 mg tablet 10 mg PO HS Qty: 90 RF: 3 diclofenac sodium 75 mg tablet,delayed release (DR/EC) See Rx Instructions .ROUTE .COMPLEX Qty: 180 RF: 1 dexamethasone [Decadron] 4 mg tablet 10 mg PO DAILY Qty: 8 RF: 0 Referrals: Ubaldo Dodson MD [Primary Care Provider] -
--- NOTE | 2020-09-04 11:35 | DI.CT.S_ITS ---
PROCEDURE: CT HEAD/BRAIN WO CON INDICATIONS: Vertigo and left arm weakness TECHNIQUE: Noncontrast 4.5 mm thick angled axial sections acquired from the foramen magnum to the vertex, with coronal and sagittal reformats. For radiation dose reduction, the following was used: automated exposure control, adjustment of mA and/or kV according to patient size. COMPARISON: [facility], CT, HEAD WITHOUT CONTRAST, 05/07/2017, 12:15. FINDINGS: Image quality: Excellent. CSF spaces: Basal cisterns are patent. No extra-axial fluid collections. The ventricles are symmetric in size and shape. Brain: No intracranial bleeds or masses. There is cerebral volume loss for age, with resultant ventricular and sulcal prominence. There are periventricular and deep white matter chronic small vessel ischemic changes. There is intracranial internal carotid artery atherosclerosis. Skull and face: Calvarium and visualized facial bones appear intact, without suspicious lesions. Sinuses: Visualized sinuses and mastoids are clear. IMPRESSION: Unremarkable intracranial study for age. Stable from prior. If there is strong clinical suspicion for an acute stroke, please consider an MRI for further evaluation, as it is more sensitive (assuming that there is no contraindication to MRI). Dictated by: Reji Hernandez M.D. on 09/04/2020 at 11:00 Approved by: Reji Hernandez M.D. on 09/04/2020 at 11:01
[2020-09-04 12:13] LABS: INR 0.9 (0.9-1.3); Prothrombin Time 10.6 SECONDS (10.1-12.7)
[2020-09-04 12:16] LABS: PTT Partial Thromboplastin Tim 30 SECONDS (26.4-36.2)
[2020-09-04 12:19] LABS: Creatine Kinase 78 U/L (55-170)
[2020-09-04 12:20] LABS: Alanine Aminotransferase 37 IU/L (<50); Albumin 3.9 g/dL (3.5-5.0); Albumin Globulin Ratio 1.6 (1.0-2.8); Alkaline Phosphatase 62 U/L (38-126); Aspartate Aminotransferase 20 IU/L (17-59); BUN Creatinine Ratio 23.2 (6-22); Bilirubin Total 0.5 mg/dL (0.2-1.3); Blood Urea Nitrogen 23 mg/dL (9-20); Calcium 9.2 mg/dL (8.4-10.2); Carbon Dioxide 27 mmol/L (22-32); Chloride 104 mmol/L (98-107); Estimated Glomerular Filt Rate > 60.0 mL/min (>60); Globulin 2.5 g/dL (1.7-4.1); Glucose 95 mg/dL (80-110); HEMOLYSIS < 15 (0-50); Lipase 56 U/L (23-300); Potassium 4.1 mmol/L (3.4-5.1); Sodium 136 mmol/L (137-145); Total Protein 6.4 g/dL (6.3-8.2)
[2020-09-04 12:21] LABS: Add Manual Diff / Slide Review NO; Basophils Absolute Auto 0 /uL (0-100); Basophils Percent Auto 0.7 % (0-2); Eosinophils Absolute Auto 300 /uL (0-450); Eosinophils Percent Auto 7.2 % (2-4); Hemoglobin 15.2 g/dL (13.5-17.5); Lymphocytes Absolute Auto 1500 /uL (1100-4500); Lymphocytes Percent Auto 31.1 % (25-40); Mean Corpuscular HGB Conc 33.1 % (30-36); Mean Corpuscular Hemoglobin 29.8 PG (26-34); Mean Corpuscular Volume 90.2 fL (80-100); Monocytes Absolute Auto 400 /uL (0-900); Neutrophils Absolute Auto 2500 /uL (1500-7000); Platelet Count 176 X10^3/uL (150-400); Red Cell Distribution Width 14.3 % (11.6-14.8); White Blood Cell Count 4.7 X10^3/uL (4.5-11.0)
[2020-09-04 12:30] LABS: Troponin I < 0.012 ng/mL (0.01-0.034)
== END 2020-09-04 13:31 | disposition home or self-care (01) ==
PROVIDERS: Emergency Provider Emergency Medicine; PCP Family Medicine
DX: R42 Dizziness and giddiness (principal); M54.10 Radiculopathy, site unspecified
CPT/HCPCS: 36415; 70450; 80053; 82550; 83690; 84484; 85025; 85610; 85730; 93005; 99283; 99284

== ENCOUNTER → 2020-09-05 08:07 | Outpatient (CLI) | payer OTHER, SELFPAY ==
--- NOTE | 2020-09-05 | DI.RAD.S_ITS ---
PROCEDURE: XR CERVICAL SPINE 4V OR 5V INDICATIONS: LOWER NECK PAIN, LOWER LEFT ARM PAIN TECHNIQUE: 5 views of the cervical spine acquired. COMPARISON: None. FINDINGS: Bones: No fractures or dislocations to the C7 level. Moderate C3-C4 and C6-C7 degenerative disc disease. Severe C5-C6 degenerative disc disease. Mild C2-C3 degenerative disc disease. Mild bilateral C2-C3, C3-C4, C4-C5, C5-C6 and C6-C7 facet hypertrophy. Mild bilateral C3-C4 and C4-C5 uncovertebral hypertrophy. Moderate bilateral C5-C6 and C6-C7 uncovertebral hypertrophy. Severe right C5-C6 and C6-C7 neural foraminal narrowing. Severe left C 3-C4 and C6-C7 neural foraminal narrowing. Mild left C4-C5 and C5-C6 neural foraminal narrowing. Soft tissues: No prevertebral soft tissue swelling. IMPRESSION: 1. Multilevel degenerative disc disease. 2. Multilevel facet and uncovertebral arthropathy. 3. Neural foraminal stenosis as described above. 4. No fracture. No acute osseous lesion. If symptoms and/or clinical suspicion for pathology persists, evaluation with MRI should be considered for further assessment. Dictated by: Tina Bae MD, PhD on 09/05/2020 at 17:20 Approved by: Tina Bae MD, PhD on 09/05/2020 at 17:22
== END ==
PROVIDERS: PCP Family Medicine; Referring Provider Chiropractor; Visit Provider Chiropractor
DX: M79.632 Pain in left forearm (principal); M47.812 Spondylosis without myelopathy or radiculopathy, cervical region; M50.31 Other cervical disc degeneration, high cervical region; M48.02 Spinal stenosis, cervical region
CPT/HCPCS: 72050

== ENCOUNTER → 2021-10-20 09:11 | Outpatient (CLI) | payer OTHER, SELFPAY ==
--- NOTE | 2021-10-20 | DI.MRI.S_ITS ---
PROCEDURE: MR CERVICAL SPINE WO CON INDICATIONS: Cervical spondylosis radiculopathy/Spondylolisthes TECHNIQUE: Noncontrast sagittal T1 spin echo and T2 fast spin echo, sagittal STIR, foraminal oblique sagittal T2 fast spin echo, and axial gradient echo or T2 fast spin echo through the cervical spine. COMPARISON: [facility], CR, XR CERVICAL SPINE 4V OR 5V, 09/05/2020, 8:07. [facility], MR, MR LUMBAR SPINE WO CON, 10/20/2021, 9:53. FINDINGS: Image quality: Excellent. Alignment and Curvature: There is minimal anterolisthesis seen at C7-T1. Bone Marrow: Marrow demonstrates normal overall signal. Spinal Cord: Visualized spinal cord has normal size and signal. No cerebellar tonsillar herniation. Paraspinous Soft Tissues: No paravertebral masses. Prevertebral soft tissues are normal in thickness. C2-C3: The disc height is well-preserved. Loss of disc signal is seen at this level. A mild degree of generalized disc osteophyte complex is seen. There is moderate right-sided and mild left-sided facet hypertrophy. There is at least moderate right-sided and mild left-sided neural foraminal narrowing. No significant central canal narrowing is seen. C3-C4: [id number] loss of disc height and disc signal can be seen. Mild to moderate disc osteophyte complex is seen. At least moderate facet hypertrophy is seen, left worse than right. There is moderate to severe bilateral neural foraminal narrowing, left worse than right. Moderate central canal narrowing is seen. Minimal associated mass effect can be seen upon the ventral spinal cord. C4-C5: Mild loss of disc height is seen. Loss of disc signal is seen. Moderate generalized disc osteophyte complex is seen. Moderate facet joint hypertrophy is seen, left worse than right. There is moderate to severe bilateral neural foraminal narrowing, left worse than right. Mild central canal narrowing is seen. C5-C6: At least moderate loss of disc height and disc signal can be seen. At least moderate disc osteophyte complex is seen, which is eccentric to the right. There is at least moderate facet hypertrophy. There is severe right-sided and moderate to severe left-sided neural foraminal narrowing. Mild to moderate central canal narrowing is seen. C6-C7: Mild loss of disc height is seen. Loss of disc signal is seen. At least moderate disc osteophyte complex is seen. At least moderate facet hypertrophy is seen at this level. There is moderate to severe bilateral neural foraminal narrowing seen. Mild central canal narrowing is seen. C7-T1: At least moderate loss of disc height and disc signal can be seen at this level. Moderate generalized disc osteophyte complex is seen. At least moderate bilateral neural foraminal narrowing can be seen. Minimal central canal narrowing is seen. T1-T2: Moderate loss of disc height and disc signal can be seen. Mild to moderate disc osteophyte complex is seen. Moderate bilateral neural foraminal narrowing is seen. Minimal central canal narrowing is seen. IMPRESSION: Multiple levels of cervical spine degenerative change are seen, which are overall worst at the C5-C6 level. Dictated by: Reji Hernandez M.D. on 10/20/2021 at 10:26 Approved by: Reji Hernandez M.D. on 10/20/2021 at 10:31
--- NOTE | 2021-10-20 | DI.MRI.S_ITS ---
PROCEDURE: MR LUMBAR SPINE WO CON INDICATIONS: Cervical spondylosis radiculopathy/Spondylolisthes TECHNIQUE: Noncontrast sagittal T1 spin echo and T2 fast echo, sagittal STIR, and T2 fast spin echo through the lumbar spine. In cases with scoliosis, additional coronal T2 fast spin echo may be performed. COMPARISON: [facility], , MR LUMBAR SPINE WO CON, 09/24/2017, 7:17. [facility], CR, XR LUMBAR SPINE WITH OLBIQUES PLUS FLEXION EXTENSION, 09/19/2017, 9:09. FINDINGS: Image quality: Excellent. Alignment and Curvature: There is mild, approximately 3-4 millimeters of L1-L2, L2-L3 and L3-L4 retrolisthesis.. Bone Marrow: Type 2 Modic reactive endplate changes noted adjacent to the T12-L1, L1-L2, L2-L3, L3-L4 and L5-S1 discs. No acute vertebral body compression fractures. Spinal Cord: Conus medullaris terminates at the L1 level. Visualized cord demonstrates normal signal and size. Paraspinous Soft Tissues: No paravertebral masses. T12-L1: Loss of disc signal and height. Mild to moderate diffuse disc bulge. Mild bilateral facet hypertrophy. Mild narrowing of the central canal. Moderate right and mild left neural foraminal narrowing. No neural compression. L1-L2: Loss of disc signal. Moderate, diffuse disc bulge. Moderate bilateral facet hypertrophy. Moderate to severe narrowing of the central canal with crowding of the nerve roots of the cauda equina. Moderate bilateral neural foraminal narrowing. No neural compression. L2-L3: Loss of disc signal and height. Posterior disc osteophyte complex. Moderate facet and moderate ligamentum flavum hypertrophy. Severe narrowing of the central canal with compression of the nerve roots of the cauda equina. Moderate bilateral neural foraminal narrowing. L3-L4: Loss of disc signal and height. Posterior disc osteophyte complex. Mild bilateral facet hypertrophy. Moderate narrowing of the central canal. Moderate bilateral neural foraminal narrowing. No neural compression. L4-L5: Loss of disc signal and height. Moderate right and mild left facet hypertrophy. Mild narrowing of the central canal. Moderate bilateral neural foraminal narrowing. No neural compression. L5-S1: Loss of disc signal and mild loss of disc height. Mild, diffuse disc bulge. Moderate bilateral facet hypertrophy. No central stenosis. Severe bilateral neural foraminal narrowing with compression of the exiting L5 nerve roots. IMPRESSION: 1. Multilevel degenerative disc disease. 2. Multilevel facet arthropathy. 3. Severe L2-L3 central canal narrowing with compression of the nerve roots of the cauda equina. Moderate to severe L1-L2 central canal narrowing. 4. Severe bilateral L5-S1 neural foraminal narrowing with compression of the exiting bilateral L5 nerve roots. Dictated by: Tina Bae MD, PhD on 10/20/2021 at 12:19 Approved by: Tina Bae MD, PhD on 10/20/2021 at 12:23
== END ==
PROVIDERS: PCP Family Medicine; Referring Provider Neurological Surgery; Visit Provider Neurological Surgery
DX: M43.16 Spondylolisthesis, lumbar region (principal); M47.22 Other spondylosis with radiculopathy, cervical region; M51.36 Other intervertebral disc degeneration, lumbar region; M51.37 Other intervertebral disc degeneration, lumbosacral region; M47.816 Spondylosis without myelopathy or radiculopathy, lumbar region; M47.817 Spondylosis without myelopathy or radiculopathy, lumbosacral region; M48.061 Spinal stenosis, lumbar region without neurogenic claudication; M48.07 Spinal stenosis, lumbosacral region
CPT/HCPCS: 72141; 72148

== ENCOUNTER → 2022-02-02 07:39 | Outpatient (CLI) | payer OTHER, SELFPAY ==
[2022-02-02 08:35] LABS: Add Manual Diff / Slide Review NO; Basophils Absolute Auto 0 /uL (0-100); Basophils Percent Auto 1.2 % (0-2); Eosinophils Absolute Auto 200 /uL (0-450); Eosinophils Percent Auto 5.8 % (2-4); Hematocrit 45.7 % (41-53); Hemoglobin 15.1 g/dL (13.5-17.5); Lymphocytes Absolute Auto 1300 /uL (1100-4500); Lymphocytes Percent Auto 34.8 % (25-40); Mean Corpuscular HGB Conc 33.1 % (30-36); Mean Corpuscular Hemoglobin 29.5 PG (26-34); Monocytes Absolute Auto 400 /uL (0-900); Monocytes Percent Auto 9.1 % (3-14); Neutrophils Absolute Auto 1900 /uL (1500-7000); Neutrophils Percent Auto 49.1 % (50-75); Platelet Count 183 X10^3/uL (150-400); Red Blood Cell Count 5.14 X10^6/uL (4.5-5.9); Red Cell Distribution Width 13.5 % (11.6-14.8); White Blood Cell Count 3.9 X10^3/uL (4.5-11.0)
[2022-02-02 09:36] LABS: TSH w/ Reflex to FT4 3.37 uIU/mL (0.47-4.68)
[2022-02-02 10:05] LABS: Alanine Aminotransferase 27 IU/L (<50); Albumin 4.3 g/dL (3.5-5.0); Albumin Globulin Ratio 1.7 (1.0-2.8); Alkaline Phosphatase 68 U/L (38-126); Aspartate Aminotransferase 20 IU/L (17-59); BUN Creatinine Ratio 20.7 (6-22); Bilirubin Total 0.7 mg/dL (0.2-1.3); Blood Urea Nitrogen 23 mg/dL (9-20); Calcium 9.9 mg/dL (8.4-10.2); Carbon Dioxide 23 mmol/L (22-32); Chloride 107 mmol/L (98-107); Cholesterol 161 mg/dL (140-199); Estimated Glomerular Filt Rate > 60 mL/min (>60); Globulin 2.6 g/dL (1.7-4.1); Glucose 95 mg/dL (80-110); HDL Cholesterol 55 mg/dL (40-60); HEMOLYSIS < 15 (0-50); LDL Cholesterol Calculated 90 mg/dL (<100); Potassium 4.7 mmol/L (3.4-5.1); Sodium 138 mmol/L (137-145); Total Protein 6.9 g/dL (6.3-8.2); Triglycerides 79 mg/dL (35-150)
== END ==
PROVIDERS: PCP Family Medicine; Referring Provider Family Medicine; Visit Provider Family Medicine
DX: E78.2 Mixed hyperlipidemia (principal)
CPT/HCPCS: 36415; 80053; 80061; 84443; 85025